=== PATIENT | male | born 1995 | race Caucasian/White ===

== ENCOUNTER 2017-03-12 10:48 | Emergency (ER) | payer OTHER ==
[2017-03-12 10:55] VITALS: BP 155/101
--- NOTE | 2017-03-12 11:37 | PHYS DOC ---
General Chief Complaint: INSECT BITE Stated Complaint: INSECT BITE Time Seen by MD: 11:03 Source: patient Exam Limitations: no limitations Problems: History of Present Illness Initial Comments Patient is a 21-year-old male who comes to the ED complaining of possible insect bite. Patient states that he awoke this morning and noticed a blister with a red [place] around it at his left hip. He popped the blister and clear fluid was expressed. Initially itchy lesion is now somewhat tender. 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 He denies fever chills sweats or myalgias no fatigue or lethargy or somnolence sounds no arthralgias. Tetanus is up-to-date. Timing/Duration: 24 hours Severity: moderate Modifying Factors: worse with movement, improves with rest Associated Symptoms: rash Allergies: Coded Allergies: No Known Drug Allergies (Unverified , 03/12/17) Past Medical History Medical History: other (allergies) Surgical History: noncontributory Social History Smoker: non-smoker Alcohol: none Drugs: none Review of Systems Constitutional: denies chills, denies diaphoresis, denies fever, denies malaise , denies weakness Respiratory: denies cough, denies shortness of breath Cardiovascular: denies chest pain, denies palpitations Gastrointestinal: denies nausea, denies vomiting Musculoskeletal: denies back pain, denies joint pain, denies joint swelling, denies neck pain Psychiatric/Neurological: denies headache, denies numbness, denies paresthesia Hematologic/Lymphatic: denies blood clots, denies easy bleeding, denies easy bruising Immunological/Allergic: see HPI Physical Exam General Appearance: WD/WN, no apparent distress Ear, Nose, Throat: hearing grossly normal, normal ENT inspection Neck: non-tender, supple Respiratory: normal breath sounds, no respiratory distress Cardiovascular: normal peripheral pulses, regular rate, rhythm Back: no CVA tenderness, no vertebral tenderness Extremities: non-tender, normal inspection 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 Mildly tender there is warmth there is no subcutaneous mass or fluctuance.) Orders, Labs, Meds I discussed tick bites and Lyme disease as well as blood work antibiotics and PCP follow-up. Patient expressed agreement and understanding of the treatment plan. Departure Time of Disposition: 11:35 Disposition: 01 HOME, SELF-CARE Diagnosis: suspected insect bite with erythema migrans Condition: STABLE Patient Instructions: Lyme Disease Additional Instructions: Keep wound covered with sterile dressing, clean and dry until healed. [id number] Tylenol and ibuprofen as needed. Prescription: Doxycycline, Bactroban ointment. Take doxycycline with food to avoid nausea. Follow-up at [place] next week for Lyme disease serology results and recheck. Return to the ED with new or changing symptoms. AJ MENDOSA DO Mar 12, 2017 11:37
[2017-03-12] MEDS ORDERED: DOXYCYCLINE HYCLATE 100 MG TABLET PO ONE (11:45)
== END 2017-03-12 11:40 | disposition home or self-care (01) ==
LOC: ER 10:48
DX: L53.8 Other specified erythematous conditions (principal); S70.222A Blister (nonthermal), left hip, initial encounter; X58.XXXA Exposure to other specified factors, initial encounter; Y93.89 Activity, other specified; Y99.8 Other external cause status; Y92.89 Other specified places as the place of occurrence of the external cause
CPT/HCPCS: 36415; 86617; 86618; 99283; 99284